=== PATIENT | male | born 1980 | race African-American/Black ===

== ENCOUNTER 2019-11-19 00:46 | Observation (INO) ==
[2019-11-19] MEDS ORDERED: Orphenadrine Citrate INJ 30 mg/ml 2 ml VIAL (60 mg) IV ONE (02:03)
[2019-11-19 02:35] LABS: ABS Basophils 0.1 10^3/ul (0-0.2); ABS Eosinophils 0.2 10^3/ul (0-0.6); ABS Lymphocytes 1.7 10^3/ul (1.0-4.8); ABS Neutrophils 4.7 10^3/ul (1.5-7.7); Eosinophil % 2.4 %; Hematocrit 39 % (42-52); Hemoglobin 13.4 g/dL (14.0-18.0); Lymphocyte % 22.1 %; Mean Corpuscular HGB Conc 35 g/dL (31-36); Mean Corpuscular Hemoglobin 32 pg (27-31); Mean Corpuscular Volume 92 fL (80-94); Mean Platelet Volume 8.5 fL (7.4-10.4); Platelet Count 180 10^3/uL (150-450); Red Blood Count 4.21 10^6 /uL (4.18-5.48); Red Cell Distribution Width 14 % (10-15); White Blood Count 7.5 10^3/uL (3.5-10.8)
[2019-11-19 02:37] LABS: Urine Appearance Clear; Urine Bilirubin Negative (Negative); Urine Blood Negative (Negative); Urine Color Straw; Urine Glucose Negative (Negative); Urine Ketones Negative (Negative); Urine Nitrite Negative (Negative); Urine Protein Negative (Negative); Urine Specific Gravity 1.004 (1.010-1.030); Urine Urobilinogen Negative (Negative)
[2019-11-19 02:40] LABS: INR 1.11 (0.82-1.09)
[2019-11-19 02:51] LABS: Albumin 4.1 g/dL (3.2-5.2); Albumin/Globulin Ratio 1.5 (1-3); BUN/Creatinine Ratio 14.2 (8-20); Calcium 8.8 mg/dL (8.6-10.3); EGFR African American 88.4 (>60); Globulin 2.8 g/dL (2-4); Magnesium 2.2 mg/dL (1.9-2.7); Potassium 3.8 mmol/L (3.5-5.0); Total Bilirubin 0.3 mg/dL (0.2-1.0); Total Protein 6.9 g/dL (6.4-8.9)
[2019-11-19] MEDS ORDERED: LORazepam 2 mg VIAL 1 ml IV PUSH ONE (06:06)
[2019-11-19] MEDS ORDERED: Lorazepam PYXIS KEY PRN ×2 (06:06→07:32)
[2019-11-19] MEDS ORDERED: Lorazepam PYXIS KEY ONE (06:07)
[2019-11-19] MEDS ORDERED: LORazepam 2 mg VIAL 1 ml ONE (06:08)
[2019-11-19] MEDS ORDERED: NS 0.9% 1000 ml BAG 1,000 ML IV ONE (06:16)
[2019-11-19] MEDS ORDERED: LORazepam 2 mg VIAL 1 ml IV PUSH PRN (07:32)
[2019-11-19] MEDS ORDERED: NS 0.9% 1000 ml BAG 1,000 ML IV SCH (07:45)
[2019-11-19 08:02] LABS: Acetaminophen < 15 mcg/mL; Alcohol, S < 10 mg/dL (<10); Salicylate < 2.50 mg/dL (<30)
[2019-11-19] MEDS ORDERED: LaCOSAMide VIAL 200 MG in NS 0.9% 50 ML 50 ML IV ONE (08:15)
[2019-11-19 12:13] LABS: C Reactive Protein 5.35 mg/L (<8.01)
[2019-11-19 12:25] LABS: Urine Benzodiazepine Screen None Detected (None Detect); Urine Cannabinoids Screen None Detected (None Detect); Urine Opiates Screen None Detected (None Detect)
[2019-11-20 07:56] VITALS: BP 108/66
[2019-11-20 11:08] LABS: Phosphorus 3.5 mg/dL (2.5-5.0)
== END 2019-11-20 14:55 ==
LOC: MED 00:46 → ED 00:46 → MED 08:40
PROVIDERS: ADMIT Hospitalist; ATTEND Internal Medicine